=== PATIENT | female | born 2000 | race African-American/Black ===

== ENCOUNTER → 2020-04-04 | Outpatient (REF) | payer OTHER, SELFPAY ==
[2020-05-06 15:46] LABS: CHLAMYDIA DNA AMPLIFICATION NEGATIVE (NEGATIVE); GC DNA AMPLIFICATION NEGATIVE (NEGATIVE)
== END ==
LOC: M SFHCLUC 14:26
PROVIDERS: ATTEND Physician Assistant
DX: N89.8 Other specified noninflammatory disorders of vagina (principal)

== ENCOUNTER 2020-10-04 10:14 | Emergency (ER) | payer OTHER, SELFPAY ==
[~2020-10-04] VITALS: Ht 172.7 cm; Wt 71.0 kg
--- OUTSIDE RECORDS SUMMARY | 2020-10-04 11:07 | CCD ---
Author Author [facility] Organization [facility] Address Unknown Phone Unavailable Support Name Relationship Address Phone NINA NUNEZ Next Of Kin [address] [place] [address] [facility] Next Of Kin [address] [place] [address] Unavailable Re-disclosure Warning The records that you are about to access may contain information from federally-assisted alcohol or drug abuse programs. If such information is present, then the following federally mandated warning applies: This information has been disclosed to you from records protected by federal confidentiality rules (42 CFR part 2). The federal rules prohibit you from making any further disclosure of this information unless further disclosure is expressly permitted by the written consent of the person to whom it pertains or as otherwise permitted by 42 CFR part 2. A general authorization for the release of medical or other information is NOT sufficient for this purpose. The Federal rules restrict any use of the information to criminally investigate or prosecute any alcohol or drug abuse patient.The records that you are about to access may contain highly sensitive health information, the redisclosure of which is protected by Article 27-F of the [facility] Public Health law. If you continue you may have access to information: Regarding HIV / AIDS; Provided by facilities licensed or operated by the [facility] Office of Mental Health; or Provided by the [facility] Office for People With Developmental Disabilities. If such information is present, then the following [facility] mandated warning applies: This information has been disclosed to you from confidential records which are protected by state law. State law prohibits you from making any further disclosure of this information without the specific written consent of the person to whom it pertains, or as otherwise permitted by law. Any unauthorized further disclosure in violation of state law may result in a fine or assisted sentence or both. A general authorization for the release of medical or other information is NOT sufficient authorization for further disc losure. Insurance Providers Payer name Policy type / Coverage type Policy ID Covered republican ID Covered republican's relationship to nelson Policy Nelson Plan Information [facility] ACTIVE DUTY [id number] SP [id number] SELF PAY ONLY [id number] SP [id number] SELF PAY ONLY UNK SP UNK
[2020-10-04 11:25] LABS: BASO # 0.1 10^3/uL (0.0-0.2); BASO % 0.5 % (0.0-1.0); EOS # 0.1 10^3/uL (0.0-0.5); EOS % 0.9 % (0.0-3.0); HEMATOCRIT 39.4 % (36.0-47.0); LYMPH # 2.2 10^3/uL (1.5-5.0); LYMPH % 19.5 % (24.0-44.0); MEAN CORPUSCULAR HEMOGLOBIN 23.5 pg (27.0-33.0); MEAN CORPUSCULAR HGB CONC 30.5 g/dl (32.0-36.5); MEAN CORPUSCULAR VOLUME 77.3 fl (80.0-96.0); MONO # 1.2 10^3/uL (0.0-0.8); MONO % 10.3 % (0.0-5.0); NEUTROPHILS # 7.7 10^3/uL (1.5-8.5); NEUTROPHILS % 67.4 % (36.0-66.0); PLATELET COUNT, AUTOMATED 227 10^3/uL (150-450); WHITE BLOOD COUNT 11.4 10^3/uL (4.0-10.0)
--- NOTE | 2020-10-04 11:44 | REP ---
INDICATION: pain umbilical to lower pelvis. COMPARISON: None. TECHNIQUE: Transabdominal obstetric sonography limited scanning. FINDINGS: Scanning through the gravid uterus demonstrates a viable single intrauterine gestation in cephalic lie. motion is observed and heart rate is recorded at 139 beats per minute. A posterior placenta is seen, grade 0, without evidence of placenta previa. Closed cervical length is measured at 3.6 cm transabdominally. No extrauterine abnormality is observed. Amniotic fluid is subjectively normal. JYOTI is normal at 15.10 cm. IMPRESSION: Viable single intrauterine gestation in cephalic lie on limited Ob sonography. Normal amniotic fluid. <Electronically signed by Monico Connell > 10/04/20 [id number]
[2020-10-04 12:00] LABS: ALBUMIN 3.3 GM/DL (3.2-5.2); ALT/SGPT 48 U/L (12-78); BILIRUBIN,DIRECT < 0.1 MG/DL (0.0-0.2); BILIRUBIN,TOTAL 0.2 MG/DL (0.2-1.0); LIPASE 78 U/L (73-393); TOTAL PROTEIN 6.9 GM/DL (6.4-8.2)
[2020-10-04 13:01] VITALS: BP 121/64
== END 2020-10-04 13:14 | disposition home or self-care (01) ==
LOC: M ED 10:14
DX: O26.892 Other specified pregnancy related conditions, second trimester (principal); R10.9 Unspecified abdominal pain; Z3A.18 18 weeks gestation of pregnancy

== ENCOUNTER 2020-10-27 09:26 | Emergency (ER) | payer OTHER ==
[~2020-10-27] VITALS: Ht 172.7 cm; Wt 75.5 kg
--- OUTSIDE RECORDS SUMMARY | 2020-10-27 09:34 | CCD ---
Author Author [facility] Organization [facility] Address Unknown Phone Unavailable Support Name Relationship Address Phone NINA NUNEZ Next Of Kin [address] [place] [address] [facility] Next Of Kin [address] [place] [address] Unavailable Re-disclosure Warning The records that you [...] is protected by Article 27-F of the [facility] Public Health law. If you continue you may have access to information: Regarding HIV / AIDS; Provided by facilities licensed or operated by the [facility] Office of Mental Health; or Provided by the [facility] Office for People With Developmental Disabilities. If such information is present, then the following [facility] mandated warning applies: This information has [...] law may result in a fine or fci sentence or both. A general authorization for the release of medical or other information is NOT sufficient authorization for further disc losure. Insurance Providers Payer name Policy type / Coverage type Policy ID Covered republican ID Covered republican's relationship to nelson Policy Nelson Plan Information [facility] ACTIVE DUTY [id number] SP [id number] SELF PAY ONLY [id number] SP [id number] SELF PAY ONLY UNK SP UNK
[2020-10-27] MEDS ORDERED: ONDANSETRON 4 MG TAB PO ONE (10:30)
--- OUTSIDE RECORDS SUMMARY | 2020-10-27 10:35 | CCD ---
Author Author [facility] Organization [facility] Address Unknown Phone Unavailable Support Name Relationship Address Phone NINA NUNEZ Next Of Kin [address] [place] [address] [facility] Next Of Kin [address] [place] [address] Unavailable Re-disclosure Warning The records that you [...] is protected by Article 27-F of the [facility] Public Health law. If you continue you may have access to information: Regarding HIV / AIDS; Provided by facilities licensed or operated by the [facility] Office of Mental Health; or Provided by the [facility] Office for People With Developmental Disabilities. If such information is present, then the following [facility] mandated warning applies: This information has [...] law may result in a fine or [place] [facility] sentence or both. A general authorization for the release of medical or other information is NOT sufficient authorization for further disc losure. Insurance Providers Payer name Policy type / Coverage type Policy ID Covered green party ID Covered green party's relationship to nelson Policy Nelson Plan Information [facility] ACTIVE DUTY [id number] SP [id number] SELF PAY ONLY [id number] SP [id number] SELF PAY ONLY UNK SP UNK
[2020-10-27] MEDS ORDERED: NS 1,000 ML IV ONE (10:45)
[2020-10-27 10:46] LABS: HEMATOCRIT 35.4 % (36.0-47.0); MEAN CORPUSCULAR HEMOGLOBIN 24.3 pg (27.0-33.0); MEAN CORPUSCULAR HGB CONC 31.1 g/dl (32.0-36.5); MEAN CORPUSCULAR VOLUME 78.3 fl (80.0-96.0); PLATELET COUNT, AUTOMATED 259 10^3/uL (150-450); RED BLOOD COUNT 4.52 10^6/uL (4.00-5.40); WHITE BLOOD COUNT 9.9 10^3/uL (4.0-10.0)
[2020-10-27 11:04] LABS: BLOOD UREA NITROGEN 8 MG/DL (7-18); CARBON DIOXIDE LEVEL 27 MEQ/L (21-32); CHLORIDE LEVEL 106 MEQ/L (98-107); GLOMERULAR FILTRATION RATE > 60.0 (>60); GLUCOSE, FASTING 74 MG/DL (70-100); POTASSIUM SERUM 4.2 MEQ/L (3.5-5.1); SODIUM LEVEL 138 MEQ/L (136-145)
[2020-10-27] MEDS ORDERED: ZOFR4TAB16 PO (11:47)
[2020-10-27 12:43] VITALS: BP 115/62
== END 2020-10-27 12:53 | disposition home or self-care (01) ==
LOC: M ED 09:26
DX: O99.282 Endocrine, nutritional and metabolic diseases complicating pregnancy, second trimester (principal); E86.0 Dehydration; Z3A.21 21 weeks gestation of pregnancy

== ENCOUNTER 2022-05-30 18:57 | Emergency (ER) | payer OTHER ==
[~2022-05-30] VITALS: Ht 172.7 cm; Wt 65.0 kg
[~2022-05-30 18:57] MED LIST: ZOFR4TAB16 PO
[2022-05-30] MEDS ORDERED: thera flu PO (19:20)
[2022-05-30 20:37] LABS: RSV AMPLIFICATION NEGATIVE (NEGATIVE)
[2022-05-30 20:49] VITALS: BP 116/53
== END 2022-05-30 20:50 | disposition home or self-care (01) ==
LOC: M ED 18:57
DX: J06.9 Acute upper respiratory infection, unspecified (principal)